=== PATIENT | female | born 1990 | race Caucasian/White ===

== ENCOUNTER 2019-07-19 10:44 | Inpatient (IN) | payer BC, MEDICAID, OTHER ==
[~2019-07-19] VITALS: Ht 175.3 cm; Wt 106.8 kg
[2019-07-19 12:07] LABS: CHLORIDE 110 mEq/L (98-107)
[2019-07-19 12:12] LABS: BASOPHILS % 0.5 % (0.0-2.0); EOSINOPHILS % 0.7 % (0.0-5.0); ETHANOL BLOOD < 10 mg/dL; HEMATOCRIT. 38.8 % (36.0-48.0); HEMOGLOBIN. 13.3 g/dL (12.0-16.0); LYMPHOCYTES % 39.8 % (20.0-50.0); MEAN CORPUSCULAR HEMOGLOBIN 29.8 pg (28.0-32.0); MEAN CORPUSCULAR VOLUME 86.8 fL (81.0-99.0); MEAN PLATELET VOLUME 9.6 fl (7.4-10.4); MONOCYTES % 8.7 % (2.0-8.0); NEUTROPHILS % 50.3 % (40.0-76.0); PLATELET 262 x1000/uL (130-400); RED BLOOD CELL COUNT 4.47 mill/uL (4.2-5.4); RED CELL DISTRIBUTION WIDTH 14.3 % (11.6-14.6)
[2019-07-19 12:17] LABS: PARTIAL THROMBOPLASTIN TIME 28.5 sec (23.4-31.0); PROTHROMBIN TIME 10.8 sec (9.6-11.0)
[2019-07-19 12:26] LABS: HCG SCREEN NEGATIVE
[2019-07-19 12:35] LABS: CLARITY URINE CLEAR (CLEAR); COLOR URINE YELLOW (YELLOW); KETONES URINE NEGATIVE (NEGATIVE); LEUKOCYTE ESTERASE URINE TRACE (NEGATIVE); NITRITE URINE NEGATIVE (NEGATIVE); OCCULT BLOOD URINE NEGATIVE (NEGATIVE); PH URINE 8.5 (4.5-8.0); PROTEIN URINE NEGATIVE (NEGATIVE); SPECIFIC GRAVITY URINE 1.007 (1.005-1.030); UROBILINOGEN URINE 0.2 E.U./dL (0.2-1.0)
[2019-07-19 13:07] LABS: *AMPHETAMINES SCREEN URINE NEGATIVE (NEGATIVE); *BARBITURATES SCREEN URINE NEGATIVE (NEGATIVE); *BENZODIAZEPINES SCREEN URINE NEGATIVE (NEGATIVE)
[2019-07-19 13:08] LABS: *COCAINE SCREEN URINE NEGATIVE (NEGATIVE); CANNABINOID URINE SCREEN NEGATIVE (NEGATIVE); METHADONE URINE SCREEN NEGATIVE (NEGATIVE); OPIATES URINE SCREEN NEGATIVE (NEGATIVE); PHENCYCLIDINE URINE SCREEN NEGATIVE (NEGATIVE)
[2019-07-19] MEDS ORDERED: ASPIRIN 325MG EC TABLET PO ONE (13:30)
[2019-07-19] MEDS ORDERED: ONDANSETRON HCL 4MG/2ML INJ IV PRN (15:30)
[2019-07-19] MEDS ORDERED: CLONIDINE 0.1MG TABLET PO PRN (15:30)
[2019-07-19] MEDS ORDERED: IPRATROPIUM/ALBUTEROL 0.5-3(2.5)MG/3ML NEB HHN PRN (15:30)
[2019-07-19 17:30] LABS: PHOSPHORUS 3.5 mg/dL (2.5-4.9)
[2019-07-19] MEDS: ACETAMINOPHEN 325MG TABLET PO PRN (21:39)
[2019-07-19 22:00] VITALS: BP 127/74
[2019-07-20] VITALS: BP 126/63
[2019-07-20 04:00] VITALS: BP 114/58
[2019-07-20] MEDS: ACETAMINOPHEN 325MG TABLET PO PRN ×2 (04:26→10:50)
[2019-07-20 07:49] LABS: BASOPHILS % 0.5 % (0.0-2.0); EOSINOPHILS % 1.3 % (0.0-5.0); HEMATOCRIT. 38.9 % (36.0-48.0); HEMOGLOBIN. 13.1 g/dL (12.0-16.0); LYMPHOCYTES % 50.9 % (20.0-50.0); MEAN CORPUSCULAR HEMOGLOBIN 29.5 pg (28.0-32.0); MEAN CORPUSCULAR VOLUME 87.7 fL (81.0-99.0); MONOCYTES % 10.6 % (2.0-8.0); NEUTROPHILS % 36.7 % (40.0-76.0); PLATELET 245 x1000/uL (130-400); RED BLOOD CELL COUNT 4.43 mill/uL (4.2-5.4)
[2019-07-20 07:57] VITALS: BP 112/76
[2019-07-20 08:05] LABS: CHLORIDE 109 mEq/L (98-107)
[2019-07-20 08:19] LABS: LDL CHOLESTEROL 58 mg/dL (5-100)
[2019-07-20 08:21] LABS: HDL CHOLESTEROL 45 mg/dL (40-59)
[2019-07-20 12:00] VITALS: BP 123/64
[2019-07-20] MEDS ORDERED: AMLO5TAB88 MT (12:26)
[2019-07-20] MEDS ORDERED: IBUPROFEN 400MG TABLET PO SCH (12:30)
[2019-07-20 15:41] VITALS: BP 123/64
[2019-07-20 16:00] VITALS: BP 126/65
== END 2019-07-20 17:44 | disposition home or self-care (01) | DRG 54 ==
LOC: ER 10:44 → ENRESERV 20:44 → 6WST 22:04
PROVIDERS: ADMIT Internal Medicine; ATTEND Internal Medicine
DX: G43.909 Migraine, unspecified, not intractable, without status migrainosus (principal); H53.2 Diplopia; I16.0 Hypertensive urgency; I10 Essential (primary) hypertension; Z79.899 Other long term (current) drug therapy
CPT/HCPCS: 36415; 70551; 71045; 80053; 80061; 80305; 80320; 81003; 83735; 83880; 84100; 84443; 84484; 84703; 85025; 93005; 93880; 93970; 99285; G0480

== ENCOUNTER 2021-09-22 22:02 | Emergency (ER) | payer MEDICAID ==
[~2021-09-22] VITALS: Ht 175.3 cm; Wt 103.4 kg
[~2021-09-22 22:02] MED LIST: AMLO5TAB88 MT
[2021-09-22 22:04] VITALS: BP 136/84
[2021-09-22] MEDS ORDERED: ONDANSETRON HCL 4MG/2ML INJ IV STA (22:07)
[2021-09-22] MEDS ORDERED: FAMOTIDINE 20MG/2ML VIAL IV STA (22:07)
[2021-09-22] MEDS ORDERED: SODIUM CHLORIDE 0.9% 1,000 ML IV ONE (22:15)
[2021-09-22 22:36] LABS: CLARITY URINE CLOUDY (CLEAR); COLOR URINE DARK YELLOW (YELLOW); KETONES URINE 3+ (NEGATIVE); LEUKOCYTE ESTERASE URINE 2+ (NEGATIVE); NITRITE URINE NEGATIVE (NEGATIVE); OCCULT BLOOD URINE TRACE (NEGATIVE); PROTEIN URINE 1+ (NEGATIVE); SPECIFIC GRAVITY URINE 1.029 (1.005-1.030)
[2021-09-23 01:02] LABS: BASOPHILS % 0.3 % (0.0-2.0); EOSINOPHILS % 0.3 % (0.0-5.0); HEMATOCRIT. 42.3 % (36.0-48.0); HEMOGLOBIN. 13.9 g/dL (12.0-16.0); LYMPHOCYTES % 24.9 % (20.0-50.0); MEAN CORPUSCULAR HEMOGLOBIN 27.5 pg (28.0-32.0); MEAN CORPUSCULAR VOLUME 83.7 fL (81.0-99.0); MEAN PLATELET VOLUME 8.8 fl (7.4-10.4); NEUTROPHILS % 68.5 % (40.0-76.0); PLATELET 306 x1000/uL (130-400); RED BLOOD CELL COUNT 5.05 mill/uL (4.2-5.4); RED CELL DISTRIBUTION WIDTH 15.6 % (11.6-14.6)
[2021-09-23 01:15] LABS: CHLORIDE 106 mEq/L (98-107)
[2021-09-23 01:39] LABS: B-HCG QUANTITATIVE 30326 mIU/mL (<3)
[2021-09-23] MEDS ORDERED: FAMOTIDINE 20MG/2ML VIAL IV NR (03:30)
[2021-09-23] MEDS ORDERED: ONDANSETRON HCL 4MG/2ML INJ IV NR (03:30)
[2021-09-23] MEDS ORDERED: CEPH500T MT (04:58)
[2021-09-23] MEDS ORDERED: CEFTRIAXONE 1 G PREMIX 50 ML IV ONE (05:00)
== END 2021-09-23 06:33 | disposition home or self-care (01) ==
LOC: ER 22:02
DX: O23.02 Infections of kidney in pregnancy, second trimester (principal); Z3A.15 15 weeks gestation of pregnancy
CPT/HCPCS: 36415; 76705; 76805; 76817; 80053; 81003; 83690; 84702; 85025; 87077; 87086; 93005; 96361; 96374; 96375; 99285; J0696; J2405; J3490; J7030

== ENCOUNTER 2023-04-21 10:09 | Emergency (ER) | payer MEDICAID, OTHER ==
[~2023-04-21] VITALS: Ht 177.8 cm; Wt 114.8 kg
[~2023-04-21 10:09] MED LIST changes: +CEPH500T MT
[2023-04-21 10:29] VITALS: BP 142/52; PULSE 83; RESP 16; TEMP 98.2; O2SAT 99
[2023-04-21] MEDS ORDERED: ACETAMINOPHEN 325MG TABLET PO ONE (10:30)
[2023-04-21] MEDS ORDERED: ACET-2708 MT (10:41)
== END 2023-04-21 12:04 | disposition home or self-care (01) ==
LOC: ER 10:09
DX: S20.219A Contusion of unspecified front wall of thorax, initial encounter (principal); X58.XXXA Exposure to other specified factors, initial encounter; Y93.89 Activity, other specified; Y92.89 Other specified places as the place of occurrence of the external cause; Y99.8 Other external cause status
CPT/HCPCS: 71101; 81025; 99283

== ENCOUNTER 2024-03-20 12:19 | Emergency (ER) | payer MEDICAID, OTHER ==
[~2024-03-20] VITALS: Ht 170.2 cm; Wt 72.0 kg
[~2024-03-20 12:19] MED LIST changes: +ACET-2708 MT
[2024-03-20 12:24] VITALS: O2SAT 99
[2024-03-20] MEDS: ACETAMINOPHEN 325MG TABLET PO STA (12:32)
[2024-03-20 13:24] LABS: BASOPHILS % 0.2 % (0.0-2.0); EOSINOPHILS % 0.6 % (0.0-5.0); HEMATOCRIT. 43.4 % (36.0-48.0); LYMPHOCYTES % 36.6 % (20.0-50.0); MEAN CORPUSCULAR HEMOGLOBIN 27.5 pg (28.0-32.0); MEAN CORPUSCULAR HGB CONC 32.2 g/dL (31.0-37.0); MEAN CORPUSCULAR VOLUME 85.3 fL (81.0-99.0); MEAN PLATELET VOLUME 9.4 fl (7.4-10.4); MONOCYTES % 8.2 % (2.0-8.0); NEUTROPHILS % 54.4 % (40.0-76.0); PLATELET 360 x1000/uL (130-400); RED BLOOD CELL COUNT 5.09 mill/uL (4.2-5.4); RED CELL DISTRIBUTION WIDTH 15.3 % (11.6-14.6); WHITE BLOOD COUNT 10.6 x1000/uL (4.5-11.0)
[2024-03-20] MEDS: ONDANSETRON HCL 4MG/2ML INJ IV STA (13:28)
[2024-03-20] MEDS: METOCLOPRAMIDE HCL 10MG/2ML VIAL IV ONE (13:37)
[2024-03-20] MEDS: DIPHENHYDRAMINE 50MG/ML VIAL IV ONE (13:37)
[2024-03-20] MEDS: KETOROLAC 30MG/ML VIAL IV ONE (13:38)
[2024-03-20 13:45] LABS: CHLORIDE 105 mEq/L (98-107); SODIUM 136 mEq/L (136-145)
[2024-03-20 13:46] LABS: CALCIUM 9.7 mg/dL (8.7-10.4); CARBON DIOXIDE 26 mEq/L (21-32)
[2024-03-20 13:51] LABS: CREATININE 0.8 mg/dL (0.6-1.0); GLUCOSE 93 mg/dL (70-105); UREA NITROGEN BLOOD 9 mg/dL (9-23)
[2024-03-20 14:02] LABS: HCG SCREEN NEGATIVE
[2024-03-20 14:03] LABS: CLARITY URINE CLEAR (CLEAR); COLOR URINE YELLOW (YELLOW); GLUCOSE URINE NEGATIVE (NEGATIVE); KETONES URINE NEGATIVE (NEGATIVE); LEUKOCYTE ESTERASE URINE 2+ (NEGATIVE); NITRITE URINE NEGATIVE (NEGATIVE); OCCULT BLOOD URINE 3+ (NEGATIVE); PH URINE 7.5 (4.5-8.0); PROTEIN URINE NEGATIVE (NEGATIVE); SPECIFIC GRAVITY URINE 1.006 (1.005-1.030); UROBILINOGEN URINE 0.2 E.U./dL (0.2-1.0)
[2024-03-20 14:21] LABS: SQUAMOUS EPITHELIAL CELL URINE 2+ /lpf (RARE/1+)
[2024-03-20 14:22] LABS: BACTERIA URINE TRACE; RBC URINE 0-2 /hpf (0-2)
[2024-03-20 14:25] LABS: TROPONIN I HIGH SENSITIVITY < 4 ng/L (3.0-34)
[2024-03-20] MEDS: SODIUM CHLORIDE 0.9% 1,000 ML IV ONE (15:13)
[2024-03-20 15:37] LABS: POTASSIUM 3.7 mEq/L (3.5-5.1)
[2024-03-20 15:45] LABS: PROTHROMBIN TIME 11.4 sec (9.6-11.0)
[2024-03-20] MEDS ORDERED: NITR-87 MT (15:50)
[2024-03-20 16:05] VITALS: BP 98/68; PULSE 78; RESP 14; TEMP 36.94740; O2SAT 99
== END 2024-03-20 16:55 | disposition home or self-care (01) ==
LOC: ER 12:19
DX: G43.909 Migraine, unspecified, not intractable, without status migrainosus (principal); N39.0 Urinary tract infection, site not specified; I10 Essential (primary) hypertension; Z86.59 Personal history of other mental and behavioral disorders
CPT/HCPCS: 99285; 96374; 96375; 70450; 71045; 96361; 80048; 81003; 84703; 83880; 85025; 85610; 84484; 36415; 93005; 84132; J1200; J1885; J2765; J2405; J7030